=== PATIENT | female | born 1985 | race American Indian/Alaskan Native ===

== ENCOUNTER 2019-04-21 13:21 | Emergency (ER) | payer OTHER ==
[2019-04-21] MEDS ORDERED: IBUPROFEN PO ONE (13:51)
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
[2019-04-21 17:23] VITALS: BP 144/82
== END 2019-04-21 17:25 | disposition home or self-care (01) ==
LOC: ED 13:21
DX: M54.2 Cervicalgia (principal); M54.5 Low back pain; M79.10 Myalgia, unspecified site; Z79.1 Long term (current) use of non-steroidal anti-inflammatories (NSAID); V89.2XXA Person injured in unspecified motor-vehicle accident, traffic, initial encounter; Y93.89 Activity, other specified; Y92.488 Other paved roadways as the place of occurrence of the external cause; Y99.8 Other external cause status
CPT/HCPCS: 99282